=== PATIENT | male | born 1955 | race Two or more races ===

== ENCOUNTER → 2018-08-29 | Outpatient (CLI) | payer OTHER ==
[~2018-08-29] MED LIST: ALBU8.5H5; GUAI-110; MONT10TA6
== END | disposition home or self-care (01) ==
LOC: CVU 15:46
PROVIDERS: ATTEND Nurse Practitioner Family
DX: I11.9 Hypertensive heart disease without heart failure (principal); I35.8 Other nonrheumatic aortic valve disorders; I35.1 Nonrheumatic aortic (valve) insufficiency; I25.10 Atherosclerotic heart disease of native coronary artery without angina pectoris; I25.2 Old myocardial infarction
CPT/HCPCS: 0399T; 93306

== ENCOUNTER 2019-12-24 09:00 | Emergency (ER) | payer OTHER ==
[~2019-12-24] VITALS: Ht 167.6 cm; Wt 77.7 kg
--- NOTE | 2019-12-24 09:35 | NUR ---
pt presents to ED with c/o left leg numbness he began to notice 2 weeks ago, but spread down leg further yesterday. pt also notes left sided facial numbness onset two weeks ago. pt states he had some visual disturbances (flashing lights) that he noted this am, which prompted him to come to ED this am. pt is a&ox4, joking with staff. all monitors in place, no focal weakness noted with neuro exam. POC discussed with pt and daughter by JOSIE Ramirez .
--- NOTE | 2019-12-24 09:56 | NUR ---
pt to CT
[2019-12-24 10:17] LABS: BASOPHILS % (AUTO) 1 % (0-1); EOSINOPHILS % (AUTO) 5 % (1-7); LYMPHOCYTES % (AUTO) 29 % (22-44); MD NO; MEAN CORPUSCULAR HEMOGLOBIN 30.1 pg (27.5-34.5); MEAN CORPUSCULAR HGB CONC 33.2 g/dL (33.2-36.2); MEAN PLATELET VOLUME 8.9 fL (7.4-10.4); MONOCYTES % (AUTO) 9 % (2-9); NEUTROPHILS % (AUTO) 56 % (42-75); PLATELET COUNT 169 x10^3/uL (130-400); RED BLOOD COUNT 5.18 x10^6/uL (4.38-5.82); RED CELL DISTRIBUTION WIDTH 13.2 % (9.4-14.8)
[2019-12-24 10:25] LABS: ALBUMIN 4.1 g/dL (3.4-5.0); ANION GAP 6 mmol/L (5-15); CALCIUM 9.2 mg/dL (8.5-10.1); CHLORIDE 109 mmol/L (98-107); CREATININE 0.91 mg/dL (0.7-1.3)
[2019-12-24 10:36] LABS: INTERNATIONAL NORMALIZED RATIO 0.99 (0.93-1.1); PROTHROMBIN TIME 10.5 Seconds (9.6-11.5)
--- NOTE | 2019-12-24 11:10 | NUR ---
PT TAKEN TO MRI AT THIS TIME.
--- NOTE | 2019-12-24 11:20 | NUR ---
ADVERTISING AGENCY MANAGER NOTIFIED THIS RN THAT PT IS TOO CLAUSTROPHOBIC TO COMPLETE MRI. JOSIE CABALLERO NOTIFIED, MD INSTRUCTED RN TO ADMINISTER 1 MG IV ATIVAN FOR MRI.
[2019-12-24] MEDS ORDERED: LORazepam 2 MG/ML, 1ML ONE (11:24)
--- NOTE | 2019-12-24 11:44 | NUR ---
PIV PLACED, PT MEDICATED WITH 1 MG IV ATIVAN, PT TOLERATED WELL. PT PLACED ON OXYGEN AT 2L/MIN VIA NC FOR MRI. PT A&O, RESPS EVEN AND UNLABORED, NADN. IN MRI AT THIS TIME.
[2019-12-24] MEDS ORDERED: LORazepam 2 MG/ML, 1ML IVPush ONE (12:00)
--- NOTE | 2019-12-24 12:09 | NUR ---
pt back from MRI, pt a&o, resps even and unlabored. pt is sinus corrie rate 45-50s with no ectopy on cardiac care nurse. pt has no complaint. awaiting MRI read and dispo.
[2019-12-24 13:39] VITALS: BP 126/71
== END 2019-12-24 13:42 | disposition home or self-care (01) ==
LOC: ED 10:19
DX: R20.2 Paresthesia of skin (principal); R51.9 Headache, unspecified; R94.31 Abnormal electrocardiogram [ECG] [EKG]
CPT/HCPCS: 36415; 70450; 70551; 80048; 82040; 85025; 85610; 85730; 93005; 96374; 99285; J2060